=== PATIENT | female | born 1950 | race Caucasian/White ===

== ENCOUNTER 2017-01-19 02:46 | Inpatient (IN) | payer MEDICARE ==
[2017-01-18 23:11] LABS: A/G RATIO 0.9 (0.7-1.9); ALBUMIN 3.4 G/DL (3.5-5.0); CALCIUM, SERUM 8.6 MG/DL (8.5-10.4); CHLORIDE, SERUM 98 MMOL/L (96-112); CO2 (CARBON DIOXIDE) 20 MMOL/L (24-34); POTASSIUM, SERUM 4.3 MMOL/L (3.5-5.3); SGOT(AST) 22 U/L (5-40); SGPT(ALT) 19 U/L (5-65); TOTAL PROTEIN 7.4 G/DL (6.0-8.5)
[2017-01-18 23:12] LABS: ALKALINE PHOSPHATASE 72 U/L (45-117); BUN (BLOOD UREA NITROGEN) 15 MG/DL (6-23); CREATININE 1.48 MG/DL (0.55-1.02); GFR AFRICAN AMERICAN 42 ML/MIN (>=60); GFR NON AFRICAN AMERICAN 36 ML/MIN (>=60); GLUCOSE, SERUM 133 MG/DL (60-99); SODIUM, SERUM 132 MMOL/L (135-148); TOTAL BILIRUBIN 1.1 MG/DL (0-1.2)
--- NOTE | ~2017-01-19 | DS ---
Discharge Summary [id number] [place]. [address] NAME: AMINTA PATTERSON : 46 STATUS : DIS IN PAT#: [id number] AGE: 66 ADM/REG DATE : 01/19/17 MR#: [id number] REPORT SERV DATE: 01/22/17 DICTATED BY: BENJY DELANEY DATE: 01/21/17 REPORT STATUS : Draft TRANSCRIBED BY: MODL DATE: 01/21/17 ADMISSION DATE: 01/19/2017 DISCHARGE DATE: 01/21/2017 REASON FOR ADMISSION: Sepsis with pyelonephritis along with acute asthma/COPD exacerbation. HPI: Please refer to Dr. Varela's history and physical dated 01/19/2017 for complete details regarding the patient's admission. The patient was admitted to hospice service management of the above. HOSPITAL COURSE: The patient had uncomplicated hospital course. She presented with sepsis criteria with leukocytosis, tachycardia, and a dirty urinalysis. She had already been on Macrobid, however, urine culture was obtained, which grew out less than 5000 colonies. She was started on cefepime on admission. Blood cultures were negative. Lactic acid was normal. White blood cell count was 18.4 on admission and is normal at the time of discharge. She was started on steroids and nebulizers. She was also having an acute asthma/COPD exacerbation. She had responded very well to those therapies and reached maximal hospitalization on 01/21/2017. She was ambulating the halls without any oxygen. Her lung exam was clear to auscultation. Her hyponatremia had resolved with IV fluids. She will be discharged to home today in a stable condition. DISCHARGE DIAGNOSES: Sepsis secondary to pyelonephritis, now resolved; acute on chronic, chronic obstructive pulmonary disease/asthma exacerbation, now resolving; hyponatremia, resolved; acute kidney injury, resolved; major depressive disorder, stable. PROCEDURES: Include CT scan of the abdomen and pelvis without contrast. DISCHARGE MEDICATIONS: Include Macrobid 100 mg twice a day for just one more day, Flonase daily, Singulair 10 mg at bedtime, paroxetine 40 mg at bedtime, Zocor 20 mg at bedtime, prednisone 40 mg once a day for three more days, Dulera 2 puffs inhaler daily, Prevacid 30 mg daily; Ventolin p.r.n. The patient will be discharged today. Follow up with a PCP. DICTATED BY: MD BOOM Jaquez/KRISTEN Benjy Delaney MD / [id number] Discharge Summary [address] [address] NAME: AMINTA PATTERSON : 46 STATUS : DIS IN PAT#: [id number] AGE: 66 ADM/REG DATE : 01/19/17 MR#: [id number] REPORT SERV DATE: 01/22/17 DICTATED BY: BENJY DELANEY DATE: 01/21/17 REPORT STATUS : Draft TRANSCRIBED BY: KRISTEN DATE: 01/21/17 CC: MD SHER Jaquez CRYSTAL
--- NOTE | ~2017-01-19 | HP ---
History And Physical [address] [facility] [place] [place]. [address] NAME: AMINTA PATTERSON : 46 STATUS : REG ER PAT#: [id number] AGE: 66 ADM/REG DATE : 01/19/17 MR#: [id number] REPORT SERV DATE: 01/19/17 DICTATED BY: LIZ LOVETT DATE: 01/19/17 REPORT STATUS : Draft TRANSCRIBED BY: KRISTEN DATE: 01/19/17 DATE OF ADMISSION: 01/19/2017 ADDENDUM: Additional problem list should be listed. PROBLEM LIST: Left upper lobe pulmonary nodule. PLAN: Left upper lobe pulmonary nodule. The patient will need repeat CT imaging as recommended by Radiology versus possible biopsy. She does have a high risk for potential malignancy given her history of tobacco abuse. We will defer to the daytime rounding physician for plan of care. SY/KRISTEN Liz Lovett MD / [id number] CC: Lois Head
--- NOTE | ~2017-01-19 | HP ---
History And Physical [facility] [address] [place]. [address] NAME: AMINTA LEBLANC : 46 STATUS : REG ER PAT#: [id number] AGE: 66 ADM/REG DATE : 01/19/17 MR#: [id number] REPORT SERV DATE: 01/19/17 DICTATED BY: LIZ LOVETT DATE: 01/19/17 REPORT STATUS : Draft TRANSCRIBED BY: MODTian DATE: 01/19/17 DATE OF ADMISSION: 01/19/2017 POINT OF ENTRY: [facility] Emergency Department. CHIEF COMPLAINT: Shortness of breath, chills, urinary incontinence. HISTORY OF PRESENT ILLNESS: Ms. Leblanc is a 66-year-old female with history of asthma, gastroesophageal reflux disease, hyperlipidemia, and active tobacco abuse, who presents to the emergency department today with few day history of subjective fevers, night sweats, chills as well as urinary incontinence, and shortness of breath. The patient states that she has had troubles with urinary incontinence for the past three or four days. Denies any dysuria, but also endorses some subjective fevers, chills, and diaphoresis. She also states worsening of her baseline shortness of breath with occasional wheezing, but denies any significant change in cough or sputum production. She saw her primary care physician yesterday for these complaints and was diagnosed with urinary tract infection and placed on oral Macrobid therapy. She reports she has been able to tolerate that secondary to some nausea and vomiting. Initial evaluation in the emergency department notable for afebrile, but with a pulse of 130. Labs notable for a white count of 18,400. Urinalysis is positive for UTI. CT of the chest was negative for PE. CT of the abdomen and pelvis is concerning for right-sided pyelonephritis. Lactic acid was within normal limits. The patient was given some IV fluids and antibiotics, admitted to the Hospitalist Service. REVIEW OF SYSTEMS: Comprehensive review of systems otherwise negative, unless listed in history of present illness. PREVIOUS MEDICAL HISTORY: 1. Asthma. 2. Active tobacco abuse. 3. Gastroesophageal reflux disease. 4. Hyperlipidemia. SURGICAL HISTORY: 1. Hernia repair surgery. 2. Partial hysterectomy. 3. Tonsillectomy. ALLERGIES: NO KNOWN DRUG ALLERGIES. HOME MEDICATIONS: Pending at the time of dictation, but per review of the patient's medication bottles include simvastatin, Flovent, Dulera, Proventil, Macrobid, and History And Physical [address] [place]. [address] NAME: AMINTA LEBLANC : 46 STATUS : REG ER PAT#: [id number] AGE: 66 ADM/REG DATE : 01/19/17 MR#: [id number] REPORT SERV DATE: 01/19/17 DICTATED BY: LIZ LOVETT DATE: 01/19/17 REPORT STATUS : Draft TRANSCRIBED BY: KRISTEN DATE: 01/19/17 lansoprazole. SOCIAL HISTORY: She smokes about a half pack per day, has about a 69-makj-irty smoking history. Denies any alcohol or illicits. FAMILY MEDICAL HISTORY: Mother of an accidental overdose. Father . Siblings history is unknown. LABORATORY DATA AND IMAGIN. White count is 18.4, hemoglobin 9.8, hematocrit is 28.4, platelets 274. There is a positive left shift. 2. Sodium is 131, potassium 3.6, chloride 100, carbon dioxide 20, BUN 15, creatinine 1.26, glucose is 104, calcium is 8.0, protein 6.8, albumin is 2.7, bilirubin is 0.8, ALT is 15, AST is 21, alkaline phosphatase is 55. 3. Urinalysis: Specific gravity is 1.002, large leukocyte esterase, 106 white blood cells per high-power field with 1 epithelial cell. 4. Occult stool is negative. 5. EKG per my review shows sinus tachycardia with heart rate of 130, but no evidence of any acute ischemia or infarction. 6. ABG; pH is 7.47, pCO2 is 25, pO2 is 68, bicarbonate is 17, saturating 94% on room air. 7. CT of the chest per overnight Radiology read is negative for PE, just show an 11 mm left upper lobe nodule with recommended followup and/or biopsy. 8. CT scan of the abdomen and pelvis per overnight Radiology review shows moderate right- sided renal collecting system dilatation without evidence of any stones or obstruction as well as some inflammatory flat stranding surrounding the right kidney and ureter, concerning for possible early pyelonephritis. PHYSICAL EXAMINATION: VITAL SIGNS: Temperature is 98.8 degrees Fahrenheit, pulse is 130, respirations 22, saturating 96% on room air, blood pressure . On recheck, blood pressure is now , pulse of 111. GENERAL: The patient is awake, alert, in no acute distress, resting comfortably. She is an elderly female. HEENT: Atraumatic and normocephalic, slightly dry mucous membranes with poor oral dentition. Otherwise, pupils are equal, round, reactive to light and accommodation. Extraocular movements are intact. No scleral icterus. NECK: No jugular venous distention. No carotid bruits. CARDIAC: Tachycardic rate, regular rhythm. No murmurs or gallops. Normal S1 and S2. LUNGS: Decreased breath sounds in the bases as well as some scattered expiratory wheezes in all lung muller. ABDOMEN: Soft, somewhat tender to palpation in bilateral lower quadrants, left greater than right. Hypoactive bowel sounds throughout. No rebound, guarding, or rigidity. EXTREMITIES: Warm and well perfused. No cyanosis, clubbing, or edema. SKIN: Warm and dry. PSYCH: Affect appropriate. NEURO: Alert and oriented x3. Cranial nerves II through XII grossly intact. Speech is normal. Gait is not assessed. History And Physical [address] [address] NAME: AMINTA LEBLANC : 46 STATUS : REG ER PAT#: [id number] AGE: 66 ADM/REG DATE : 01/19/17 MR#: [id number] REPORT SERV DATE: 01/19/17 DICTATED BY: LIZ LOVETT DATE: 01/19/17 REPORT STATUS : Draft TRANSCRIBED BY: KRISTEN DATE: 01/19/17 ASSESSMENT: Ms. Leblanc is a 66-year-old female, presents with a few day history of urinary incontinence, subjective fevers, chills, diaphoresis, and shortness of breath, found to have evidence of pyelonephritis as well as sepsis. PROBLEM LIST: 1. Pyelonephritis. 2. Sepsis. 3. Acute asthma exacerbation. 4. Renal insufficiency. 5. Active tobacco abuse. 6. Anemia. PLAN: 1. Pyelonephritis. We will place the patient on IV cefepime as well as IV fluids. Follow up urine culture. 2. Sepsis. Meets criteria with leukocytosis as well as tachycardia. Lactic acid within normal limits. Follow up urine and blood cultures. Provide IV fluid hydration as well as IV antibiotics. 3. Acute asthma exacerbation. Continue the patient's home medications with DuoNeb p.r.n. as well as place the patient on some low-dose steroids. 4. Renal insufficiency. Unclear baseline at this time, but is elevated from prior numbers. We will provide some IV fluid hydration. Follow up repeat. 5. Anemia. No recent baseline values for comparison. Occult stool here is negative. We will continue to monitor. 6. Deep venous thrombosis prophylaxis. Lovenox subcutaneously. CODE STATUS: The patient wished to be full code. MYKELB/MODL Liz Lovett MD / [id number] CC: SEA OLIVAREZ
[2017-01-19 01:22] LABS: ALLENS TEST Pos; BE (BASE EXCESS) -4.8 MEQ/L (0 +/- 2.5); CARBOXYHEMOGLOBIN 1.6 % (0-3); HCO3 (ACTUAL BICARBONATE) 17.5 MEQ/L (23-27); HEMOBLOGIN CONTENT 11.4 G/DL (12-16); INSTRUMENT SERIAL # 8087; METHEMOGLOBIN 0.1 % (0-3); O2 CONTENT 14.9 VOL% (18-24); OPERATOR ID 17589; PCO2 (CO2 TENSION) 25 MMHG (35-45); PO2 (O2 TENSION) 68 MMHG (79-93); SAMPLE Arterial; pH 7.47 (7.37-7.43)
[2017-01-19 03:03] LABS: BASOPHILS 0.1 %; BASOPHILS ABSOLUTE 0.02 10/3/uL (0.0-0.16); EOSINOPHILS 0.1 %; EOSINOPHILS ABSOLUTE 0.01 10/3/uL (0.0-0.53); ER CBC TAT 0 Hrs 01 Mins; HEMATOCRIT 28.4 % (36.0-48.0); HEMOGLOBIN 9.8 g/dL (12.0-16.0); IMMATURE GRANULOCYTES 0.3 %; IMMATURE GRANULOCYTES ABSOLUTE 0.06 10/3/uL (0.0-0.11); LYMPHOCYTES 7.6 %; LYMPHOCYTES ABSOLUTE 1.39 10/3/uL (0.67-4.30); MANUAL DIFF NO %; MEAN CORPUS HGB CONC 34.5 g/dL (32.0-36.0); MEAN CORPUSCULAR HEMOGLOB 31.1 pg (26.0-34.0); MEAN CORPUSCULAR VOLUME 90.2 fL (80-100); MEAN PLATELET VOLUME 10.1 fL (9.2-13.0); MONOCYTES 5.3 %; MONOCYTES ABSOLUTE 0.97 10/3/uL (0.21-1.20); NEUTROPHILS 86.6 %; PLATELET COUNT 274 10/3/uL (150-400); RBC DISTRIBUTION WIDTH 14.3 % (12.0-16.0); RED CELL COUNT 3.15 10/6/uL (4.0-5.6); WHITE BLOOD CELLS 18.4 10/3/uL (4.5-10.5)
[2017-01-19 03:09] LABS: A/G RATIO 0.7 (0.7-1.9); ALBUMIN 2.7 G/DL (3.5-5.0); ALKALINE PHOSPHATASE 55 U/L (45-117); BUN (BLOOD UREA NITROGEN) 15 MG/DL (6-23); CHLORIDE, SERUM 100 MMOL/L (96-112); CO2 (CARBON DIOXIDE) 20 MMOL/L (24-34); CREATININE 1.26 MG/DL (0.55-1.02); GFR AFRICAN AMERICAN 51 ML/MIN (>=60); GFR NON AFRICAN AMERICAN 44 ML/MIN (>=60); GLOBULIN 4.1 G/DL (2.5-4.1); GLUCOSE, SERUM 104 MG/DL (60-99); POTASSIUM, SERUM 3.6 MMOL/L (3.5-5.3); SGOT(AST) 21 U/L (5-40); SGPT(ALT) 15 U/L (5-65); SODIUM, SERUM 131 MMOL/L (135-148); TOTAL BILIRUBIN 0.8 MG/DL (0-1.2); TOTAL PROTEIN 6.8 G/DL (6.0-8.5)
[2017-01-19 03:11] LABS: LACTATE 0.9 MMOL/L (0.3-2.4)
[2017-01-19 03:37] LABS: BAND NEUTROPHILS 5 %; ER DIFF TAT 0 Hrs 35 Mins; LYMPHOCYTES 4 %; LYMPHOCYTES ABSOLUTE (CALC) 0.74 10/3/uL (0.67-4.30); MONOCYTES 7 %; MONOCYTES ABSOLUTE (CALC) 1.29 10/3/uL (0.21-1.20); NEUTROPHILS ABSOLUTE (CALC) 16.38 10/3/uL (2.02-8.40); PLATELET ESTIMATE ADQ (ADEQUATE); RBC MORPHOLOGY NORM (NORMAL); SEGMENTED NEUTROPHIL (0) 84 %; TOTAL NUCLEATED CELLS 100
[2017-01-19 04:27] LABS: ASCORBIC ACID (UR NOT ORDER) NEG (NEG); BILIRUBIN, URINE NEGATIVE (NEG); ER URINALYSIS TAT 0 Hrs 00 Mins; KETONE, URINE TRACE MG/DL (NEG); LEUKOCYTE ESTERASE(NOT OR LARGE (NEG); NITRITE (URINE) NEG (NEG); WBC (NOT ORDERED) (RFLEX) 106 (0-5)
[2017-01-19 08:45] LABS: FREE T4 1.27 NG/DL (0.76-1.46)
[2017-01-19] MEDS ORDERED: ZOCOR20 PO (09:39)
[2017-01-19] MEDS ORDERED: PREV30 PO (09:39)
[2017-01-19] MEDS ORDERED: SINGULAIR1 PO (09:40)
[2017-01-19] MEDS ORDERED: MACROBID PO (09:40)
[2017-01-19] MEDS ORDERED: FLONASE NAS (09:40)
[2017-01-19] MEDS ORDERED: PAXIL40 MG PO (09:40)
[2017-01-19] MEDS ORDERED: DULERA 200 MCG/13 GM INH (09:41)
[2017-01-19] MEDS ORDERED: VENTOLIN HFA INH (09:41)
[2017-01-20 06:32] LABS: BASOPHILS 0 %; EOSINOPHILS 0 %; HEMATOCRIT 29.3 % (36.0-48.0); HEMOGLOBIN 9.9 g/dL (12.0-16.0); IMMATURE GRANULOCYTES 0.2 %; IMMATURE GRANULOCYTES ABSOLUTE 0.03 10/3/uL (0.0-0.11); LYMPHOCYTES ABSOLUTE 0.96 10/3/uL (0.67-4.30); MEAN CORPUS HGB CONC 33.8 g/dL (32.0-36.0); MEAN CORPUSCULAR HEMOGLOB 30.6 pg (26.0-34.0); MEAN CORPUSCULAR VOLUME 90.4 fL (80-100); MEAN PLATELET VOLUME 10.1 fL (9.2-13.0); MONOCYTES 3.2 %; MONOCYTES ABSOLUTE 0.44 10/3/uL (0.21-1.20); NEUTROPHILS 89.6 %; NEUTROPHILS ABSOLUTE 12.21 10/3/uL (2.02-8.40); PLATELET COUNT 353 10/3/uL (150-400); RBC DISTRIBUTION WIDTH 14.5 % (12.0-16.0); RED CELL COUNT 3.24 10/6/uL (4.0-5.6); WHITE BLOOD CELLS 13.6 10/3/uL (4.5-10.5)
[2017-01-20 06:33] LABS: MANUAL DIFF NO %
[2017-01-20 06:50] LABS: BUN (BLOOD UREA NITROGEN) 19 MG/DL (6-23); CALCIUM, SERUM 8.5 MG/DL (8.5-10.4); CHLORIDE, SERUM 111 MMOL/L (96-112); CO2 (CARBON DIOXIDE) 21 MMOL/L (24-34); CREATININE 0.93 MG/DL (0.55-1.02); GFR AFRICAN AMERICAN 73 ML/MIN (>=60); GFR NON AFRICAN AMERICAN 63 ML/MIN (>=60); GLUCOSE, SERUM 125 MG/DL (60-99); PHOSPHORUS, SERUM 2.3 MG/DL (2.5-4.5); POTASSIUM, SERUM 4.1 MMOL/L (3.5-5.3); SODIUM, SERUM 139 MMOL/L (135-148)
[2017-01-21 06:06] LABS: BASOPHILS 0 %; EOSINOPHILS 0.1 %; EOSINOPHILS ABSOLUTE 0.01 10/3/uL (0.0-0.53); HEMATOCRIT 28.7 % (36.0-48.0); HEMOGLOBIN 9.6 g/dL (12.0-16.0); IMMATURE GRANULOCYTES 0.8 %; IMMATURE GRANULOCYTES ABSOLUTE 0.08 10/3/uL (0.0-0.11); LYMPHOCYTES 13.6 %; LYMPHOCYTES ABSOLUTE 1.45 10/3/uL (0.67-4.30); MEAN CORPUS HGB CONC 33.4 g/dL (32.0-36.0); MEAN CORPUSCULAR HEMOGLOB 30.1 pg (26.0-34.0); MEAN PLATELET VOLUME 9.6 fL (9.2-13.0); MONOCYTES 4.8 %; MONOCYTES ABSOLUTE 0.51 10/3/uL (0.21-1.20); NEUTROPHILS 80.7 %; NEUTROPHILS ABSOLUTE 8.58 10/3/uL (2.02-8.40); PLATELET COUNT 416 10/3/uL (150-400); RBC DISTRIBUTION WIDTH 14.7 % (12.0-16.0); RED CELL COUNT 3.19 10/6/uL (4.0-5.6); WHITE BLOOD CELLS 10.6 10/3/uL (4.5-10.5)
[2017-01-21 06:10] LABS: MANUAL DIFF NO %
[2017-01-21 06:27] LABS: BUN (BLOOD UREA NITROGEN) 19 MG/DL (6-23); CALCIUM, SERUM 8.8 MG/DL (8.5-10.4); CHLORIDE, SERUM 113 MMOL/L (96-112); CO2 (CARBON DIOXIDE) 20 MMOL/L (24-34); CREATININE 0.98 MG/DL (0.55-1.02); GFR AFRICAN AMERICAN 69 ML/MIN (>=60); GFR NON AFRICAN AMERICAN 59 ML/MIN (>=60); GLUCOSE, SERUM 110 MG/DL (60-99); POTASSIUM, SERUM 3.3 MMOL/L (3.5-5.3); SODIUM, SERUM 142 MMOL/L (135-148)
[2017-01-21 06:28] LABS: PHOSPHORUS, SERUM 1.3 MG/DL (2.5-4.5)
[2017-01-21] MEDS ORDERED: P20 PO (15:05)
== END 2017-01-21 16:20 | disposition home or self-care (01) | DRG 872 ==
LOC: ER 02:46 → 2SO 06:28
PROVIDERS: Internal Medicine; Nurse Practitioner Family; Specialist
DX: A41.9 Sepsis, unspecified organism (principal); N17.9 Acute kidney failure, unspecified; J44.1 Chronic obstructive pulmonary disease with (acute) exacerbation; E87.1 Hypo-osmolality and hyponatremia; J45.901 Unspecified asthma with (acute) exacerbation; N10 Acute pyelonephritis; F32.9 Major depressive disorder, single episode, unspecified; K21.9 Gastro-esophageal reflux disease without esophagitis; D64.9 Anemia, unspecified; E78.5 Hyperlipidemia, unspecified; F17.210 Nicotine dependence, cigarettes, uncomplicated; R32 Unspecified urinary incontinence; R91.1 Solitary pulmonary nodule; Z98.890 Other specified postprocedural states
CPT/HCPCS: 36600; 71010; 71275; 74177; 80048; 80053; 81001; 82805; 83605; 83735; 84100; 84439; 84443; 85025; 87040; 87070; 87086; 87205; 93005; 94640; 99285; A9270-GY; J0692; J2930; Q9967